=== PATIENT | male | born 1950 | race Caucasian/White ===

== ENCOUNTER 2016-10-04 10:16 | Emergency (ER) | payer MEDICARE, OTHER, MEDICAID ==
--- NOTE | ~2016-10-04 | ER ---
PATIENT'S NAME: ELIAS [facility] AGE: 66 Y [address] ROOM: [place] [address] LOCATION: ED ADMIT DATE: 10/04/2016 ER/Outpatient Report DISCHARGE DATE: 10/04/2016 FAMILY PHYSICIAN: Andrea Knott MD ATTENDING PHYSICIAN: Lou Bennett Time of Arrival: 1016 hours. Time of Evaluation: 1115 hours. IDENTIFICATION: A 66-year-old male. CHIEF COMPLAINT: Illness. HISTORY OF PRESENT ILLNESS: The patient is a 66-year-old male who lives at [facility] and has a diagnosis of dementia. He states he has had symptoms for the last 4 days of vomiting and some abdominal pain which feels sharp, like he swallowed some metal. He had breakfast today. No vomiting today. Last emesis was maybe Tuesday. No diarrhea but his stools have been light colored. No blood in his stools. No dark, tarry, or black stools. He has had some belching. He does take a PPI. ALLERGIES: NO KNOWN DRUG ALLERGIES. CURRENT MEDICATIONS: 1. Losartan 100/25 one daily. 2. Protonix 40 mg daily. 3. Atorvastatin 40 mg daily. 4. Aspirin 81 mg daily. 5. Vitamin D3 5000 international units daily. 6. Seroquel 100 mg daily. 7. Probiotic 2 capsules daily. 8. Acetaminophen 650 mg p.r.n. 9. Milk of Magnesia p.r.n. PAST MEDICAL HISTORY: Alzheimer's dementia, hypertension, gastroesophageal reflux disease, hyperlipidemia, coronary artery disease status post stent, vitamin D deficiency and prostate cancer. PAST SURGICAL HISTORY: Robotic assisted laparoscopic radical prostatectomy, bilateral pelvic lymph PATIENT'S NAME: ELIAS [facility] AGE: 66 Y [address] ROOM: [place] [address] LOCATION: ED ADMIT DATE: 10/04/2016 ER/Outpatient Report DISCHARGE DATE: 10/04/2016 FAMILY PHYSICIAN: Andrea Knott MD ATTENDING PHYSICIAN: Lou Bennett node dissection, and excision of genital warts October [address] Benites. FAMILY HISTORY: Sister with MS. SOCIAL HISTORY: The patient resides at [facility]. Tobacco use, denies. Alcohol use, denies. Drug use, denies. REVIEW OF SYSTEMS: All systems reviewed and negative other than what was noted in the HPI. Earlier, he had a burning sensation in his chest. Currently, denies chest pain and currently has no abdominal pain. PHYSICAL EXAMINATION: VITAL SIGNS: Weight 89 kg, blood pressure 146/93, pulse 77, temperature 98.1, sats 97% on room air. GENERAL: A 66-year-old male in no acute distress. HEENT: Unremarkable. LUNGS: Clear to auscultation. HEART: Regular rate and rhythm. ABDOMEN: Bowel sounds present. Soft, nondistended, nontender. SKIN: [place], warm, and dry. No lesions or rashes noted. NEURO: The patient is alert and oriented x4. Cranial nerves 2 through 12 grossly intact. Motor strength 5/5 throughout. Sensation is intact to light touch. LABORATORY DATA AND X-RAY: Hemoglobin 16.6, hematocrit 46.3, platelets 241, white count 10, INR 0.99. Sodium 139, potassium 3.6, chloride 104, CO2 of 26, BUN 17, creatinine 1.3, blood sugar 89. Liver enzymes normal. CK 67, CK-MB less than 0.5. Troponin I less than 0.040. Amylase 25, lipase 198, hemoglobin 16.6, hematocrit 46.3, platelets 241. EKG normal sinus rhythm at 67 beats per minute. No acute ST elevation or depression. Two-view chest x-ray, no acute process. Pending Radiology over-read. Two-view abdomen, no acute process. Pending Radiology over-read. IMPRESSION: Abdominal pain, no acute etiology identified. The patient did not want any additional testing with CT or ultrasound at this time as he is pain free and labs are normal. We will add Carafate 1 g q.i.d. before meals and h.s. for 10 days, and he will follow up with Dr. Knott in 5 to 7 days. Follow up sooner if any problems or concerns. The patient and his brother and sister both understand and agree, and all questions have been answered. PATIENT'S NAME: DIETER GRIFFIN [facility] AGE: 66 Y [address] ROOM: [place] [address] LOCATION: ED ADMIT DATE: 10/04/2016 ER/Outpatient Report DISCHARGE DATE: 10/04/2016 FAMILY PHYSICIAN: Andrea Knott MD ATTENDING PHYSICIAN: Lou Bennett MD SHERRIE FOSTER/loyda /[id number] d: 10/04/162017 t: 10/05/16 0717, OUTPATIENT REPORT
[~2016-10-04 10:16] MED LIST: ARIPIPRAZOLE5 MG PO; ASPIRIN LO-DOSE81 MG PO; COCONUT OIL1000 MG PO; COLACE100 MG PO; COREG6.25 MG PO; COZAAR100 MG PO; HYDRODIURIL25 MG PO; KOMBUCHA PO; LIPITOR40 MG PO; LOSARTAN-HCTZ1 EAC1 PO; NEOSPORIN15 GM TOP; PROTONIX40 MG PO; PROZAC10 MG PO; RHODIOLA ROSEA PO; SEROQUEL50 MG PO; ZYLOPRIM100 MG PO; [UNRECOGNIZED DRUG - OTHER] PO
[2016-10-04 13:28] LABS: BASOPHIL # 0.1 K/uL (0.0-0.2); BASOPHIL % 1.1 %; EOSINOPHIL # 0.5 K/uL (0.0-0.5); EOSINOPHIL % 4.5 %; HEMATOCRIT 46.3 % (37.0-53.0); HEMOGLOBIN 16.6 g/dL (11.0-16.0); IMMATURE GRANULOCYTE # 0.1 K/uL (0.0-0.3); IMMATURE GRANULOCYTE % 0.7 %; LYMPHOCYTE # 1.8 K/uL (0.8-4.0); LYMPHOCYTE % 17.9 %; MCH 31.8 pg (27.0-34.0); MCHC 35.9 gm/dL (32.0-36.5); MCV 88.7 fl (83.0-98.0); MONOCYTE # 1.1 K/uL (0.0-1.0); MONOCYTE % 10.8 %; MPV 10.1 fl (9.4-12.4); NEUTROPHIL # (ANC) 6.5 K/uL (1.4-9.0); NRBC % 0 /100WBC (0-0.00); PLATELET COUNT 241 K/uL (150-450); RBC 5.22 M/uL (3.50-5.50); RDW-CV 12.9 % (11.9-14.6)
[2016-10-04 13:48] LABS: ALBUMIN 3.8 gm/dL (3.5-5.0); ALT 27 IU/L (12-78); ANION GAP 12.6 (10.0-19.0); AST 18 IU/L (10-40); BLOOD UREA NITROGEN 17 mg/dL (6-24); CALCIUM 8.7 mg/dL (8.5-10.5); CHLORIDE 104 mMol/L (96-110); CO2 26 mMol/L (22-32); CPK 67 IU/L (35-332); CREATININE 1.3 mg/dL (0.6-1.3); MAGNESIUM 2.3 mg/dL (1.8-2.6); POTASSIUM 3.6 mMol/L (3.7-5.1); SODIUM 139 mMol/L (135-145); TOTAL BILIRUBIN 0.5 mg/dL (0.0-1.5); TOTAL PROTEIN 7.4 g/dL (6.0-8.4)
[2016-10-04 13:50] LABS: ALK PHOS < 10 IU/L (33-138)
[2016-10-04 13:59] LABS: INR - (THERAPEUTIC) 0.99 (0.92-1.07); PROTIME 10.4 SECONDS (9.8-11.4); PTT 27 SECONDS (25-32)
== END 2016-10-04 14:09 | disposition disaster alternative care site (69) ==
LOC: GMED 10:16
PROVIDERS: Family Medicine
DX: R10.9 Unspecified abdominal pain (principal); I10 Essential (primary) hypertension; K21.9 Gastro-esophageal reflux disease without esophagitis; E78.5 Hyperlipidemia, unspecified; I25.10 Atherosclerotic heart disease of native coronary artery without angina pectoris; E55.9 Vitamin D deficiency, unspecified; G30.9 Alzheimer's disease, unspecified; F02.80 Dementia in other diseases classified elsewhere, unspecified severity, without behavioral disturbance, psychotic disturbance, mood disturbance, and anxiety; Z98.890 Other specified postprocedural states; Z90.79 Acquired absence of other genital organ(s); Z79.899 Other long term (current) drug therapy; Z79.83 Long term (current) use of bisphosphonates; Z85.46 Personal history of malignant neoplasm of prostate